=== PATIENT | male | born 1995 ===

== ENCOUNTER 2017-06-04 09:08 | Emergency (ER) | payer OTHER ==
[2017-06-04 10:57] VITALS: BP 154/99
[2017-06-04] MEDS ORDERED: Azithromycin TAB* 250 MG PO ONE (11:36)
[2017-06-04] MEDS ORDERED: cefTRIAXone VIAL(*) 1,000 MG VIAL IM ONE (11:36)
--- NOTE | 2017-06-04 12:03 | UC ---
Complaint Male HPI - HPI Summary HPI Summary: Pt presents with c/o multiple lesions to shaft of penis. Pt had unprotected intercourse with know partner and discovered painless, small, "scabs to shaft of penis. Pt denies dysuria or discharge. - History of Current Complaint Chief Complaint: UCGU Stated Complaint: PERSONAL Time Seen by Provider: 06/04/17 11:04 Hx Obtained From: Patient Onset/Duration: Sudden Onset, Lasting Days, Still Present Timing: Constant Severity Initially: Mild Severity Currently: Mild Pain Intensity: 0 Location: Penis Alleviating Factor(s): Nothing Associated Signs And Symptoms: Positive: Negative - Risk Factors Testicular Torsion: Negative - Allergies/Home Medications Allergies/Adverse Reactions: Allergies Allergy/AdvReac Type Severity Reaction Status Date / Time No Known Allergies Allergy Verified 06/04/17 10:58 PMH/Surg Hx/FS Hx/Imm Hx Previously Healthy: Yes - Surgical History Surgical History: Yes Surgery Procedure, Year, and Place: R wrist fx surgery - Family History Known Family History: Positive: Cardiac Disease - Social History Occupation: Student Lives: Dormitory/Roommates Alcohol Use: Weekly Substance Use Type: None Smoking Status (MU): Never Smoked Tobacco Have You Smoked in the Last Year: No Review of Systems Constitutional: Negative Skin: Other - lesions to penis Eyes: Negative ENT: Negative Respiratory: Negative Cardiovascular: Negative Gastrointestinal: Negative Genitourinary: Ulceration/Lesion - penis Motor: Negative Neurovascular: Negative Musculoskeletal: Negative Neurological: Negative Psychological: Negative Is Patient Immunocompromised?: No All Other Systems Reviewed And Are Negative: Yes Physical Exam Triage Information Reviewed: Yes Appearance: Well-Appearing Vital Signs: Initial Vital Signs Temp 99.3 F 06/04/17 10:51 Pulse 86 06/04/17 10:51 Resp 20 06/04/17 10:51 BP 154/99 06/04/17 10:51 Pulse Ox 100 06/04/17 10:51 Vital Signs Reviewed: Yes Eye Exam: Normal ENT Exam: Normal Dental Exam: Normal Neck exam: Normal Neck: Positive: Supple, Nontender, No Lymphadenopathy Respiratory Exam: Normal Abdomen Description: Positive: Nontender Musculoskeletal Exam: Normal Neurological Exam: Normal Psychological Exam: Normal Skin Exam: Other - 5-6. small (half pencil eraser size) raised, non tender scabbed areas alond lateral shaft of penis. Complaint Male Course/Dx - Course Course Of Treatment: I discussed with the pt the differential diagnosis of Herpes, syphilis, gonorrhea, and chlamydia. Pt denies any dysuria or discharge , painful lesions or flu like symptoms. Pt tisha past hx of STDs. sexual partner is a known partner has had intercourse previsou with partner. - Differential Dx/Diagnosis Differential Diagnosis/HQI/PQRI: Other - STD Provider Diagnoses: STD. Unprotected sex. herpes Discharge - Discharge Plan Condition: Stable Disposition: HOME Prescriptions: ValACYclovir (*) [Valtrex 1 GM(*)] 1 gm PO Q12H #20 tab Patient Education Materials: Sexually Transmitted Diseases (ED), Condom Use (ED ) Referrals: [facility] [place] [facility] [Outside] Non Staff,Doctor [Primary Care Provider] -
[2017-06-06 15:43] LABS: Herpes Simplex Virus II IgG AB Negative (Negative)
== END 2017-06-04 12:15 | disposition home or self-care (01) ==
LOC: UCCORT 09:08
DX: A60.01 Herpesviral infection of penis (principal); Z72.51 High risk heterosexual behavior
CPT/HCPCS: 36415; 86592; 86694; 86695; 86696; 87491; 87591; 96372; 99202; A9270-GY; G0463; J0696